=== PATIENT | female | born 1990 | race Caucasian/White ===

== ENCOUNTER 2017-12-19 02:23 | Emergency (ER) | payer OTHER ==
[~2017-12-19] VITALS: Ht 203.2 cm; Wt 59.0 kg
[~2017-12-19 02:23] MED LIST: ALBU90I INH; ALBU90OI INH; ALBU90OI6 INH; AMOX500 PO; BACITO TP; CEPH500 PO; CODGUAEL PO; FLUSAL2505 IH; HYDACE5 PO; IBUP600 PO; IBUP800 PO; LAVAP17G PO; LEVSOD75 PO; MAGCIT300 PO; METO10 PO; MONT10T PO; ONDA4 PO; PENVK500 PO; PREN-16 PO; Prednisone20 MG PO; RXHYDACE PO; SERT100 PO; SULTRIDS PO; Unithroid75 MCG PO; VITAMINS; Verotin-Gr Cap1 EACH PO; Zithromax250 MG PO
== END 2017-12-19 03:26 | disposition home or self-care (01) ==
LOC: ER 02:23
DX: J45.901 Unspecified asthma with (acute) exacerbation (principal); Z88.8 Allergy status to other drugs, medicaments and biological substances; Z79.899 Other long term (current) drug therapy; Z79.52 Long term (current) use of systemic steroids; E03.9 Hypothyroidism, unspecified
CPT/HCPCS: 94640; 99283

== ENCOUNTER → 2018-10-25 | Outpatient (CLI) | payer OTHER ==
[2018-10-28 15:06] LABS: HPV 16 Negative (Negative); HPV 18 Negative (Negative); HPV OTHER HR TYPES Negative (Negative)
== END | disposition home or self-care (01) ==
LOC: LAB 11:29 → LAB SHORT 11:29
PROVIDERS: Obstetrics & Gynecology
DX: N92.1 Excessive and frequent menstruation with irregular cycle (principal)
CPT/HCPCS: 87624; G0123

== ENCOUNTER 2019-01-11 08:46 | Emergency (ER) | payer OTHER ==
[~2019-01-11] VITALS: Ht 172.7 cm; Wt 59.0 kg
[2019-01-11] MEDS ORDERED: SALM50IP INH (09:44)
[2019-01-11] MEDS ORDERED: ALBU90OI INH (10:19)
[2019-01-11] MEDS ORDERED: SPACE CHAMBER1 EACH PO (10:19)
[2019-01-11] MEDS ORDERED: Prednisone20 MG PO (10:19)
== END 2019-01-11 10:59 | disposition home or self-care (01) ==
LOC: ER 08:46
DX: J45.909 Unspecified asthma, uncomplicated (principal); Z91.048 Other nonmedicinal substance allergy status; Z79.899 Other long term (current) drug therapy
CPT/HCPCS: 36415; 94644; 96365; 96375; 99284-25; J2930; J3475

== ENCOUNTER 2020-06-28 06:07 | Day surgery (SDC) | payer OTHER ==
[~2020-06-28] VITALS: Ht 172.7 cm; Wt 61.9 kg
[~2020-06-28 06:07] MED LIST changes: +Flonase 0.05% N16 GM; +MYORISAN30 MG PO; +Mucinex600 MG PO; +SALM50IP INH; +SPACE CHAMBER1 EACH PO
--- NOTE | 2020-06-28 06:53 | NUR ---
Ambulatory in Day Surgery History, Chart, Medications and Allergies reviewed before start of procedure. Lungs clear T/O to Auscultation. Pre-Op teaching done. Pt verbalizes understanding.
--- NOTE | 2020-06-28 10:55 | NUR ---
ADMIT TO UNIT PT ARRIVED TO UNIT AT APROX 1050 FROM PACU. PT LAP SITES X'S 3 C/D/I. PT DENIES PAIN AT THIS TIME, DENIES N/V. C/O EYES WATERING AND DRY, SALINE DROPS BILAT PER PT REQUEST. COPELAND PATENT DRAINING CLEAR YELLOW URINE. LUNGS CLEAR T/O. NON-PRODUCTIVE COUGH, PT STATES IT IS OCCASIONAL AT BASELINE.
--- NOTE | 2020-06-28 14:41 | NUR ---
PT WITH CONTINUED C/O EYE BURNING/ITCHING, ORDER FOR LIQUID TEARS FROM DR [email or web address]. PT REPORTS MILD RELIEF, HOT PACK PLACED. PT MEDICATED WITH 0.5 MG DILAUDID FOR PAIN-UNABLE TO GIVE PO PT NAUSEATED AND NOT TOLERATING PO AT THIS TIME. 50ML EMESIS-MEDICATED WITH REGLAN. PT STAND TO SIDE OF BED, JLUIS PAD REPLACED DUE TO MODERATE AMOUNT OF BLOOD PRESENT. PT ENCOURAGED TO REST AT THIS TIME AND NOT WEAVER DISCHARGING HOME. EDUCATED ON DISCHARGE CRITERIA.
--- NOTE | 2020-06-28 21:37 | NUR ---
DISCUSSED DISCHARGE WITH DAY SHIFT TELEMARKETING REPRESENTATIVE AND PT. PT FEELS MORE COMFORTABLE STAYING THE NIGHT TO MANAGE PAIN AND OBSERVE FOR BLEEDING. PT HAS BEEN RESTING IN BED WITH S/O AT BEDSIDE. PLAN FOR D/C IN MORNING.
[2020-06-28] MEDS ORDERED: ACET325 PO (22:04)
[2020-06-28] MEDS ORDERED: DOCU100 PO (22:04)
[2020-06-28] MEDS ORDERED: IBUP800 PO (22:06)
[2020-06-28] MEDS ORDERED: OXAYDO5 M1 PO (22:07)
--- NOTE | 2020-06-29 05:04 | NUR ---
SHIFT SUMMARY PT A/O X4. SBA TO BATHROOM. AMBULATING IN HALLWAY. PT TOLERATING PO INTAKE W/O NAUSEA. COPELAND DC'D AT MIDNIGHT. PT VOIDING SPONTANEOUSLY. PAIN MANAGED WITH PO PAIN MED PER ORDERS. JLUIS PAD CHANGED TWICE DURING THE SHIFT FOR SMALL-MODERATE BLEEDING. PT USING BREATHING TREATMENTS PRN PER ORDERS FOR ASTHMA. RESTING IN BED AT THIS TIME.
--- NOTE | 2020-06-29 09:09 | NUR ---
DISCHARGE PT EDUCATED ON AND RECEIVED PRINTED DISCHARGE INSTRUCTIONS AND VERBALIZED AN UNDERSTANDING. RX FOR OXICODONE + IBUPROFEN GIVEN TO PT. IV DC'D. PT SPONTANEOUSLY VOIDING, RADHA PO INTAKE, AMBULATING INDEP, AND REPORTS PAIN CONTROLLED. PT GATHERED ALL PERSONAL BELONGINGS AND ESCORTED OUT VIA W/C WITH SPOUSE AT SIDE.
== END 2020-06-29 09:00 | disposition home or self-care (01) ==
LOC: ORSCMMR 06:07 → ORD 07:30 → ORSCMMR 07:30 → SURS 10:35 → ORSCMMR 06-29 09:00 → SURS 06-29 09:00
PROVIDERS: Obstetrics & Gynecology
PROC: 0UT9FZZ Resection of Uterus, Via Natural or Artificial Opening With Percutaneous Endoscopic Assistance (ICD-10-PCS; principal; 2020-06-28 07:30)
PROC: 0U5F4ZZ Destruction of Cul-de-sac, Percutaneous Endoscopic Approach (ICD-10-PCS; principal; 2020-06-28 07:30)
PROC: 0JQC0ZZ Repair Pelvic Region Subcutaneous Tissue and Fascia, Open Approach (ICD-10-PCS; principal; 2020-06-28 07:30)
DX: N92.0 Excessive and frequent menstruation with regular cycle (principal); N94.6 Dysmenorrhea, unspecified; N81.6 Rectocele; N81.10 Cystocele, unspecified; N80.3 Endometriosis of pelvic peritoneum; E03.9 Hypothyroidism, unspecified; J45.909 Unspecified asthma, uncomplicated; Z79.899 Other long term (current) drug therapy; F41.8 Other specified anxiety disorders
CPT/HCPCS: 88305; 94640; 94760; A9270; J0690; J1100; J1170; J1885; J2250; J2370; J2405; J2704; J2765; J3010; J7120

== ENCOUNTER → 2022-04-27 | Outpatient (CLI) | payer OTHER ==
[~2022-04-27] MED LIST changes: +ACET325 PO; +DOCU100 PO; +OXAYDO5 M1 PO
[2022-04-27 18:54] LABS: Adenovirus F 40/41 Not Detected (NOT DETECT); Astrovirus Not Detected (NOT DETECT); Campylobacter Sp Not Detected (NOT DETECT); Cryptosporidium Not Detected (NOT DETECT); Cyclospora Cayetanensis Not Detected (NOT DETECT); E. Coli O157 Not Detected (NOT DETECT); Entamoeba Histolytica Not Detected (NOT DETECT); Enteroaggregative E. coli-EAEC Not Detected (NOT DETECT); Enteropathogenic E. coli-EPEC Not Detected (NOT DETECT); Enterotoxigenic E. coli-ETEC Not Detected (NOT DETECT); Giardia Lamblia Not Detected (NOT DETECT); Norovirus GI/GII Not Detected (NOT DETECT); Plesiomonas Shigelloides Not Detected (NOT DETECT); Rotavirus A Not Detected (NOT DETECT); Salmonella Sp Not Detected (NOT DETECT); Sapovirus Not Detected (NOT DETECT); Shiga Toxin-prod E. coli-STEC Not Detected (NOT DETECT); Shigella/Enteroin E. coli-EIEC Not Detected (NOT DETECT); Vibrio Cholerae Not Detected (NOT DETECT); Vibrio Sp Not Detected (NOT DETECT); Yersinia Enterocolitica Not Detected (NOT DETECT)
== END | disposition home or self-care (01) ==
LOC: LAB SHORT 14:53 → LAB 14:53
PROVIDERS: Physician Assistant Medical
DX: R19.7 Diarrhea, unspecified (principal)
CPT/HCPCS: 87507

== ENCOUNTER → 2024-09-23 | Outpatient (CLI) | payer OTHER ==
[~2024-09-23] MED LIST changes: +PRED20 PO
[2024-09-23 15:52] LABS: Creatinine Urine 59.7 mg/dL (27.00-270.00); Protein, Urine Quantitative 11.3 mg/dL (0.0-11.9)
== END ==
LOC: LAB SHORT 09:30 → LAB 09:30
PROVIDERS: Physician Assistant Medical
DX: R35.89 Other polyuria (principal); R63.1 Polydipsia
CPT/HCPCS: 81050; 82570; 84133; 84156; 84300

== ENCOUNTER 2025-05-12 12:40 | Day surgery (SDC) | payer OTHER ==
[2025-05-12] VITALS (9 sets, daily range): BP systolic 100–119; BP diastolic 66–79
[~2025-05-12] VITALS: Ht 172.7 cm; Wt 60.8 kg
[2025-05-12] MEDS ORDERED: Lidocaine 1%-Epineph 1:200000 30 ML SDV ONE (13:20)
[2025-05-12] MEDS ORDERED: FentaNYL Citrate 50 MCG/ML 2 ML Injection ONE (14:09)
[2025-05-12] MEDS ORDERED: Midazolam HCl 1MG / ML 2ML Vial ONE (14:09)
[2025-05-12] MEDS ORDERED: Ondansetron HCl 2 MG / ML 2ML Vial ONE (14:55)
[2025-05-12] MEDS ORDERED: Ketorolac Tromethamine 30mg Vial ONE (14:55)
[2025-05-12] MEDS ORDERED: Ondansetron HCl 2 MG / ML 2ML Vial IV PRN (15:00)
[2025-05-12] MEDS ORDERED: HYDROmorphone HCl/Pf 1MG SYR IV PRN ×2 (15:00)
[2025-05-12] MEDS ORDERED: FentaNYL Citrate 50 MCG/ML 2 ML Injection IV PRN ×2 (15:00)
[2025-05-12] MEDS ORDERED: OxyCODONE 5 mg/Acetamin 325 mg TABLET PO PRN (15:20)
--- NOTE | 2025-05-12 16:10 | NUR ---
PATIENT TOLERATING PO FLUIDS, DENIES PAIN, VITAL SIGNS STABLE. Patient States Post-Procedure ride home has been arranged. Discharged via wheelchair to private car for ride home. Discharge instructions reviewed with patient. Patient verbalizes understanding. Copy given to patient to take home.
== END 2025-05-12 23:00 | disposition home or self-care (01) ==
LOC: ORSCMMR 12:40 → ORD 12:40 → ORSCMMR 12:41 → ORD 13:45 → ORSCMMR 23:00
PROVIDERS: Obstetrics & Gynecology
PROC: 0U9L0ZX Drainage of Vestibular Gland, Open Approach, Diagnostic (ICD-10-PCS; principal; 2025-05-12 13:45)
DX: N75.0 Cyst of Bartholin's gland (principal); E03.9 Hypothyroidism, unspecified; J45.909 Unspecified asthma, uncomplicated; F41.1 Generalized anxiety disorder; F33.40 Major depressive disorder, recurrent, in remission, unspecified; K21.9 Gastro-esophageal reflux disease without esophagitis; F42.9 Obsessive-compulsive disorder, unspecified; Z79.899 Other long term (current) drug therapy; Z87.891 Personal history of nicotine dependence
CPT/HCPCS: 76857; 87070; 87075; 87077; 87102; 87186; 87205; J1885; J2250; J2405; J2704; J3010; J7120